=== PATIENT | male | born 1945 | race Caucasian/White ===

== ENCOUNTER 2021-08-31 10:10 | Outpatient (CLI) | payer MEDICARE, BC ==
[2021-08-31 11:17] LABS: Hemoglobin 11.8 g/dL (13.5-17.5); Mean Corpuscular HGB CONC 32.4 g/dL (32.0-36.0); Mean Corpuscular Hemoglobin 28.9 pg (27.0-33.0); Mean Platelet Volume 10.7 fl (7.4-10.4); Platelet Count 155 10x3/uL (150-450); RBC Distribution Width 15.8 % (11.5-14.5); Red Blood Cell (RBC) Count 4.09 10x6/uL (4.32-5.72); White Blood Cell (WBC) Count 5.2 10x3/uL (3.5-10.5)
[2021-08-31 11:37] LABS: Anion Gap 15 mmol/L (10-20); BUN (Urea Nitrogen) 26 mg/dL (8.4-25.7); Calc. Creatinine Clearance 0 mL/min (70-130); Calcium 9.4 mg/dL (7.8-10.44); Carbon Dioxide 27 mmol/L (23-31); Chloride 100 mmol/L (98-107); Estimated GFR 62; Glucose 167 mg/dL (83-110); Potassium 4.1 mmol/L (3.5-5.1); Sodium 138 mmol/L (136-145)
[2021-08-31 11:45] LABS: PTT 30.5 sec (22.0-33.0); Prothrombin Time 10.8 sec (9.5-12.1)
== END 2021-08-31 10:11 | disposition home or self-care (01) ==
LOC: CSHLAB 10:10
PROVIDERS: ATTEND Specialist
DX: Z01.818 Encounter for other preprocedural examination (principal); Z20.822 Contact with and (suspected) exposure to COVID-19
CPT/HCPCS: 80048; 85027; 85610; 85730; 87811; 93005; 93010

== ENCOUNTER → 2021-09-04 | Day surgery (SDC) | payer MEDICARE, BC ==
[~2021-09-04] MED LIST: Adenosine 6 MG/2 ML VIAL ONE; Ascorbic Acid 500 mg Chewable Tablet ONE; Aspirin 325 MG TAB ONE; Clopidogrel Bisulfate 300 MG TAB ONE; Famotidine 20 MG TAB PO SCH; Fentanyl 100 MCG/2 ML VIAL ONE; Heparin 10,000 UNITS/ 10 ML VIAL ONE; Lidocaine 1% 20 ML MDV ONE; Midazolam HCl 5 mg/5 ml Vial ONE; Nitroglycerin 50 MG/250 ML BOT 0 ML ONE; diphenhydrAMINE 25 MG CAP ONE; predniSONE 10 MG TAB PO SCH; predniSONE 20 MG TAB PO SCH
[2021-09-04 11:10] VITALS: BP 133/69; TEMP 97.6
== END | disposition home or self-care (01) ==
LOC: CSHSDC 10:16
PROVIDERS: ATTEND Specialist
PROC: 027034Z Dilation of Coronary Artery, One Artery with Drug-eluting Intraluminal Device, Percutaneous Approach (ICD-10-PCS; principal; 2021-09-04)
PROC: 4A023N7 Measurement of Cardiac Sampling and Pressure, Left Heart, Percutaneous Approach (ICD-10-PCS; 2021-09-04)
PROC: B2111ZZ Fluoroscopy of Multiple Coronary Arteries using Low Osmolar Contrast (ICD-10-PCS; 2021-09-04)
PROC: B2131ZZ Fluoroscopy of Multiple Coronary Artery Bypass Grafts using Low Osmolar Contrast (ICD-10-PCS; 2021-09-04)
DX: T82.858A Stenosis of other vascular prosthetic devices, implants and grafts, initial encounter (principal); I25.118 Atherosclerotic heart disease of native coronary artery with other forms of angina pectoris; I25.82 Chronic total occlusion of coronary artery; I25.2 Old myocardial infarction; I11.0 Hypertensive heart disease with heart failure; I50.32 Chronic diastolic (congestive) heart failure; I45.10 Unspecified right bundle-branch block; I48.0 Paroxysmal atrial fibrillation; E78.2 Mixed hyperlipidemia; I65.21 Occlusion and stenosis of right carotid artery; E11.42 Type 2 diabetes mellitus with diabetic polyneuropathy; E11.51 Type 2 diabetes mellitus with diabetic peripheral angiopathy without gangrene; I70.213 Atherosclerosis of native arteries of extremities with intermittent claudication, bilateral legs; Z79.01 Long term (current) use of anticoagulants; Z79.4 Long term (current) use of insulin; Z79.82 Long term (current) use of aspirin; Z79.899 Other long term (current) drug therapy; Z79.84 Long term (current) use of oral hypoglycemic drugs; Z88.1 Allergy status to other antibiotic agents; Z95.1 Presence of aortocoronary bypass graft
CPT/HCPCS: 82962; 92978; 92979; 93005; 93459; C1753; C1760 ×2; C1769; C1874 ×2; C1887; C9604; 36416; 92937; 93010; 99152; 99153; J0153; J1644; J2250; J3010; J7512

== ENCOUNTER 2022-03-01 14:21 | Inpatient (IN) | payer MEDICARE, BC ==
[~2022-03-01 14:21] MED LIST changes: -Adenosine 6 MG/2 ML VIAL ONE; -Ascorbic Acid 500 mg Chewable Tablet ONE; -Aspirin 325 MG TAB ONE; -Clopidogrel Bisulfate 300 MG TAB ONE; -Famotidine 20 MG TAB PO SCH; -Fentanyl 100 MCG/2 ML VIAL ONE; -Heparin 10,000 UNITS/ 10 ML VIAL ONE; +Iopamidol 370 76% 100 ML VIAL ONE; -Lidocaine 1% 20 ML MDV ONE; -Midazolam HCl 5 mg/5 ml Vial ONE; -Nitroglycerin 50 MG/250 ML BOT 0 ML ONE; -diphenhydrAMINE 25 MG CAP ONE; -predniSONE 10 MG TAB PO SCH; -predniSONE 20 MG TAB PO SCH
[2022-03-01 15:24] LABS: #Monocytes 0.9 10x3/uL (0.0-1.1); #Neutrophils 13.2 10x3/uL (1.5-8.4); %Basophils 0.2 % (0.0-2.0); %Eosinophils 0.3 % (0.0-6.0); %Lymphocytes 3.3 % (18.0-47.0); %Monocytes 5.9 % (0.0-10.0); %Neutrophils 89.4 % (40.0-75.0); Hemoglobin 12.6 g/dL (13.5-17.5); Mean Corpuscular HGB CONC 33.1 g/dL (32.0-36.0); Mean Corpuscular Hemoglobin 29.6 pg (27.0-33.0); Mean Corpuscular Volume 89.6 fl (81.2-95.1); Mean Platelet Volume 10.5 fl (7.4-10.4); Platelet Count 125 10x3/uL (150-450); RBC Distribution Width 15.5 % (11.5-14.5); Red Blood Cell (RBC) Count 4.25 10x6/uL (4.32-5.72); White Blood Cell (WBC) Count 14.7 10x3/uL (3.5-10.5)
[2022-03-01 15:29] LABS: Bilirubin Neg (Negative); Blood, Urine Negative (Negative); Clarity Clear (Clear); Glucose, Urine (Dipstick) >=1000 mg/dL (Negative); Ketone, Urine Negative (Negative); Leukocyte Negative (Negative); Nitrite Negative (Negative); Protein, Urine (Dipstick) 15 mg/dl (Neg-Trace); Specific Gravity, Urine 1.005 (1.005-1.030); Urobilinogen Normal mg/dL (Less than 2)
[2022-03-01] MEDS ORDERED: VANCOMYCIN 2 GRAM/400 ML BAG 2 GM in Premix Bag 1 BAG IVPB SCH (15:30)
[2022-03-01 15:36] LABS: SARS-CoV-2 NAA Rapid Test Not Detected (NotDetected)
[2022-03-01 15:40] LABS: ALT (SGPT) 15 U/L (8-55); AST (SGOT) 15 U/L (5-34); Albumin 3.9 g/dL (3.4-4.8); Alkaline Phosphatase 73 U/L (40-110); Anion Gap 16 mmol/L (10-20); BUN (Urea Nitrogen) 20 mg/dL (8.4-25.7); Bilirubin, Total 0.9 mg/dL (0.2-1.2); Calc. Creatinine Clearance 0 mL/min (70-130); Calcium 9.1 mg/dL (7.8-10.44); Carbon Dioxide 24 mmol/L (23-31); Chloride 101 mmol/L (98-107); Estimated GFR 54; Globulin 2.4 g/dL (2.4-3.5); Glucose 266 mg/dL (83-110); Potassium 3.6 mmol/L (3.5-5.1); Protein, Total 6.3 g/dL (5.8-8.1); Sodium 137 mmol/L (136-145)
[2022-03-01] MEDS ORDERED: HYDROcodone/Acetaminophen 5/325 mg Tablet PO PRN (17:34)
[2022-03-01] MEDS ORDERED: Senokot S 8.6-50 MG TAB PO PRN (17:34)
[2022-03-01] MEDS ORDERED: Acetaminophen 325 MG TAB PO PRN (17:34)
[2022-03-01] MEDS ORDERED: Dextrose 50% Abboject 50 ML SYRINGE SLOW IVP PRN (17:38)
[2022-03-01] MEDS ORDERED: Dextrose 5% in Water 1,000 ML IV PRN (17:38)
[2022-03-01] MEDS ORDERED: diphenhydrAMINE 50 MG/ML VIAL ONE (17:53)
[2022-03-01] MEDS ORDERED: methylPREDNISolone Sod Succ 40 MG VIAL ONE (17:54)
[2022-03-01] MEDS ORDERED: Famotidine/PF 20 mg/2ml Vial ONE (17:54)
[2022-03-01 18:43] LABS: Lactic Acid 2.9 mmol/L (0.5-2.2)
[2022-03-01] MEDS ORDERED: Doxycycline 100 MG in Sodium Chloride 0.9% 100 ML IVPB SCH (21:00)
[2022-03-01] MEDS ORDERED: Piperacillin/Tazobactam 3.375 GM VIAL ONE (21:10)
[2022-03-01] MEDS ORDERED: Famotidine 20 MG TAB ONE (21:13)
[2022-03-01] MEDS ORDERED: Piperacillin/Tazobactam 3.375 GM in Sodium Chloride 0.9% 100 ML IVPB SCH (21:30)
[2022-03-01] MEDS: Famotidine 20 MG TAB PO SCH (21:52)
[2022-03-01] MEDS: Doxycycline 100 MG in Sodium Chloride 0.9% 100 ML IVPB SCH (22:31)
[2022-03-02] MEDS: Apixaban 2.5 MG TAB PO SCH ×3 (00:26→20:57)
[2022-03-02] MEDS ORDERED: DULoxetine 30 MG CAP PO SCH (00:30)
[2022-03-02] MEDS ORDERED: Tamsulosin HCl 0.4 MG CAP PO SCH (00:30)
[2022-03-02] MEDS ORDERED: Gabapentin 300 MG CAP PO SCH (00:30)
[2022-03-02] MEDS ORDERED: Sotalol HCl 80 MG TAB PO SCH (00:30)
[2022-03-02] MEDS ORDERED: Piperacillin/Tazobactam 3.375 GM VIAL ONE ×2 (00:33→10:26)
[2022-03-02] MEDS: HumaLOG 300 UNITS/3 ML VIAL SC PRN ×3 (00:49→20:59)
[2022-03-02] MEDS: Piperacillin/Tazobactam 3.375 GM in Sodium Chloride 0.9% 100 ML IVPB SCH ×3 (00:50→17:57)
[2022-03-02 04:30] LABS: Hemoglobin 11.2 g/dL (13.5-17.5); Mean Corpuscular HGB CONC 32.7 g/dL (32.0-36.0); Mean Corpuscular Hemoglobin 29.1 pg (27.0-33.0); Mean Corpuscular Volume 89.1 fl (81.2-95.1); Mean Platelet Volume 10.8 fl (7.4-10.4); Platelet Count 139 10x3/uL (150-450); RBC Distribution Width 15.8 % (11.5-14.5); Red Blood Cell (RBC) Count 3.85 10x6/uL (4.32-5.72); White Blood Cell (WBC) Count 14.2 10x3/uL (3.5-10.5)
[2022-03-02 04:31] LABS: ALT (SGPT) 14 U/L (8-55); AST (SGOT) 14 U/L (5-34); Albumin 3.4 g/dL (3.4-4.8); Alkaline Phosphatase 55 U/L (40-110); Anion Gap 13 mmol/L (10-20); BUN (Urea Nitrogen) 25 mg/dL (8.4-25.7); Bilirubin, Total 0.9 mg/dL (0.2-1.2); Calc. Creatinine Clearance 0 mL/min (70-130); Calcium 8.5 mg/dL (7.8-10.44); Carbon Dioxide 24 mmol/L (23-31); Chloride 101 mmol/L (98-107); Estimated GFR 49; Globulin 2.2 g/dL (2.4-3.5); Glucose 187 mg/dL (83-110); Potassium 3.3 mmol/L (3.5-5.1); Protein, Total 5.6 g/dL (5.8-8.1); Sodium 135 mmol/L (136-145)
[2022-03-02 04:35] LABS: MDiff Complete? YES
[2022-03-02 05:16] LABS: Band 15 % (5-11); Lymphocytes 4 % (21-51); Metamyelocyte 1 % (0-0); Monocytes 4 % (0-10); Neutrophil 76 % (42-75)
[2022-03-02 05:17] LABS: Microcytosis SLIGHT = 6-15 cells (100X) (0-5/hpf); Platelet Morphology Comment Appears Decreased
[2022-03-02 08:24] VITALS: BMI 32.5
[2022-03-02] MEDS ORDERED: Tamsulosin HCl 0.4 MG CAP ONE (10:22)
[2022-03-02] MEDS ORDERED: Famotidine 20 MG TAB ONE (10:22)
[2022-03-02] MEDS ORDERED: Gabapentin 300 MG CAP ONE (10:22)
[2022-03-02] MEDS ORDERED: Apixaban 2.5 MG TAB ONE (10:22)
[2022-03-02] MEDS ORDERED: Amlodipine 5 MG TAB ONE (10:23)
[2022-03-02] MEDS ORDERED: Aspirin 81 mg Enteric Coated Tablet ONE (10:26)
[2022-03-02] MEDS: DULoxetine 30 MG CAP PO SCH ×2 (10:46→21:00)
[2022-03-02] MEDS: Amlodipine 5 MG TAB PO SCH ×2 (10:46→13:17)
[2022-03-02] MEDS: Aspirin 81 mg Enteric Coated Tablet PO SCH (10:46)
[2022-03-02] MEDS: Famotidine 20 MG TAB PO SCH ×2 (10:46→20:56)
[2022-03-02] MEDS: Gabapentin 300 MG CAP PO SCH ×2 (10:47→20:54)
[2022-03-02] MEDS: Finasteride 5 MG TAB PO SCH (10:47)
[2022-03-02] MEDS: Sotalol HCl 80 MG TAB PO SCH ×2 (10:47→21:00)
[2022-03-02] MEDS: Tamsulosin HCl 0.4 MG CAP PO SCH ×2 (10:49→21:00)
[2022-03-02] MEDS: Doxycycline 100 MG in Sodium Chloride 0.9% 100 ML IVPB SCH (13:17)
[2022-03-02] MEDS ORDERED: VANCOMYCIN 1.75 GM/350 ML BAG 1.75 GM in Premix Bag 1 BAG IVPB SCH (16:00)
[2022-03-02] MEDS ORDERED: Vancomycin 1.5 GRAM/300 ML BAG 1.5 GM in Premix Bag 1 BAG IVPB SCH (16:00)
[2022-03-02] MEDS ORDERED: Saccharomyces boulardii 250 MG CAP PO SCH (21:00)
[2022-03-03] MEDS: Doxycycline 100 MG in Sodium Chloride 0.9% 100 ML IVPB SCH ×2 (00:35→10:10)
[2022-03-03] MEDS: Piperacillin/Tazobactam 3.375 GM in Sodium Chloride 0.9% 100 ML IVPB SCH ×2 (01:36→09:53)
[2022-03-03 06:02] LABS: ALT (SGPT) 18 U/L (8-55); AST (SGOT) 28 U/L (5-34); Albumin 3.3 g/dL (3.4-4.8); Alkaline Phosphatase 54 U/L (40-110); Anion Gap 13 mmol/L (10-20); BUN (Urea Nitrogen) 38 mg/dL (8.4-25.7); Bilirubin, Total 0.6 mg/dL (0.2-1.2); Calc. Creatinine Clearance 67 mL/min (70-130); Calcium 8.7 mg/dL (7.8-10.44); Carbon Dioxide 25 mmol/L (23-31); Chloride 102 mmol/L (98-107); Estimated GFR 49; Globulin 2.4 g/dL (2.4-3.5); Glucose 184 mg/dL (83-110); Potassium 3.6 mmol/L (3.5-5.1); Protein, Total 5.7 g/dL (5.8-8.1); Sodium 136 mmol/L (136-145)
[2022-03-03 06:10] LABS: #Monocytes 0.7 10x3/uL (0.0-1.1); #Neutrophils 10.4 10x3/uL (1.5-8.4); %Basophils 0.2 % (0.0-2.0); %Eosinophils 0.3 % (0.0-6.0); %Lymphocytes 8.9 % (18.0-47.0); %Monocytes 5.9 % (0.0-10.0); %Neutrophils 84.1 % (40.0-75.0); Hemoglobin 11.5 g/dL (13.5-17.5); Mean Corpuscular HGB CONC 33.1 g/dL (32.0-36.0); Mean Corpuscular Hemoglobin 29.3 pg (27.0-33.0); Mean Corpuscular Volume 88.5 fl (81.2-95.1); Mean Platelet Volume 11.1 fl (7.4-10.4); Platelet Count 148 10x3/uL (150-450); RBC Distribution Width 15.9 % (11.5-14.5); Red Blood Cell (RBC) Count 3.92 10x6/uL (4.32-5.72); White Blood Cell (WBC) Count 12.4 10x3/uL (3.5-10.5)
[2022-03-03] MEDS ORDERED: Famotidine 20 MG TAB PO SCH (09:00)
[2022-03-03] MEDS: Finasteride 5 MG TAB PO SCH (09:49)
[2022-03-03] MEDS: Gabapentin 300 MG CAP PO SCH (09:49)
[2022-03-03] MEDS: Famotidine 20 MG TAB PO SCH (09:49)
[2022-03-03] MEDS: Aspirin 81 mg Enteric Coated Tablet PO SCH (09:49)
[2022-03-03] MEDS: DULoxetine 30 MG CAP PO SCH (09:52)
[2022-03-03] MEDS: Tamsulosin HCl 0.4 MG CAP PO SCH (09:52)
[2022-03-03] MEDS: Sotalol HCl 80 MG TAB PO SCH (09:52)
[2022-03-03] MEDS: Amlodipine 5 MG TAB PO SCH (09:56)
[2022-03-03] MEDS ORDERED: Clopidogrel Bisulfate 75 MG TAB PO SCH (10:30)
[2022-03-03] MEDS ORDERED: Amlodipine 5 MG TAB PO SCH ×2 (11:30→21:00)
[2022-03-03] MEDS ORDERED: Valsartan 80 MG TAB PO SCH (11:30)
[2022-03-03] MEDS ORDERED: Doxycycline 100 MG CAP PO SCH (12:00)
[2022-03-03] MEDS: Apixaban 2.5 MG TAB PO SCH (12:55)
[2022-03-03 13:38] VITALS: BP 134/63; TEMP 98.6
[2022-03-03 15:26] LABS: Vancomycin, Trough 12.3 ug/mL
[2022-03-04] MEDS ORDERED: Valsartan 80 MG TAB PO SCH (09:00)
[2022-03-04] MEDS ORDERED: Amlodipine 5 MG TAB PO SCH (09:00)
[2022-03-04] MEDS ORDERED: Clopidogrel Bisulfate 75 MG TAB PO SCH (09:00)
== END 2022-03-03 15:15 | disposition home or self-care (01) | DRG 871 ==
LOC: CSHERS 14:21 → CSHERHOLD 20:44 → CSHTELE 03-02 13:00
PROVIDERS: ADMIT Family Medicine; ATTEND Family Medicine
DX: A41.9 Sepsis, unspecified organism (principal); J15.6 Pneumonia due to other Gram-negative bacteria; E78.5 Hyperlipidemia, unspecified; I25.10 Atherosclerotic heart disease of native coronary artery without angina pectoris; Z20.822 Contact with and (suspected) exposure to COVID-19; I12.9 Hypertensive chronic kidney disease with stage 1 through stage 4 chronic kidney disease, or unspecified chronic kidney disease; N18.30 Chronic kidney disease, stage 3 unspecified; E11.22 Type 2 diabetes mellitus with diabetic chronic kidney disease; Z88.8 Allergy status to other drugs, medicaments and biological substances; Z79.01 Long term (current) use of anticoagulants; Z79.899 Other long term (current) drug therapy; Z79.82 Long term (current) use of aspirin; Z79.4 Long term (current) use of insulin; Z95.1 Presence of aortocoronary bypass graft
CPT/HCPCS: 36415; 36416; 71045; 71275; 80053; 80202; 81003; 83605; 85025; 87040; 87804; 93005; 96365; 96366; 96375; J1200; J1815; J1956; J2543; J2920; J3370; J3490; Q9967; S0028; U0002

== ENCOUNTER 2023-07-31 14:09 | Outpatient (CLI) | payer MEDICARE ==
[2023-07-31 15:28] LABS: Hematocrit 35.2 % (38.8-50.0); Hemoglobin 11.2 g/dL (13.5-17.5); Mean Corpuscular HGB CONC 31.8 g/dL (32.0-36.0); Mean Corpuscular Volume 84.8 fl (81.2-95.1); Mean Platelet Volume 10.1 fl (7.4-10.4); Platelet Count 194 10x3/uL (150-450); RBC Distribution Width 17.2 % (11.5-14.5); Red Blood Cell (RBC) Count 4.15 10x6/uL (4.32-5.72); White Blood Cell (WBC) Count 5.1 10x3/uL (3.5-10.5)
[2023-07-31 16:09] LABS: Anion Gap 15 mmol/L (10-20); BUN (Urea Nitrogen) 24 mg/dL (8.4-25.7); Calc. Creatinine Clearance 0 mL/min (70-130); Calcium 9.9 mg/dL (7.8-10.44); Carbon Dioxide 29 mmol/L (23-31); Chloride 100 mmol/L (98-107); Estimated GFR 61; Glucose 190 mg/dL (83-110); Potassium 4.1 mmol/L (3.5-5.1); Sodium 140 mmol/L (136-145)
[2023-07-31 16:20] LABS: INR-International Normal Ratio 1.1; Prothrombin Time 11.4 sec (9.5-12.1)
== END 2023-07-31 15:05 | disposition home or self-care (01) ==
LOC: CSHLAB 14:09
PROVIDERS: ATTEND Specialist
DX: Z01.818 Encounter for other preprocedural examination (principal); R93.1 Abnormal findings on diagnostic imaging of heart and coronary circulation; I25.10 Atherosclerotic heart disease of native coronary artery without angina pectoris
CPT/HCPCS: 80048; 85027; 85610; 93005; 93010

== ENCOUNTER 2023-08-01 10:39 | Day surgery (SDC) | payer MEDICARE ==
[~2023-08-01 10:39] MED LIST changes: +Iopamidol 300 61% 100 ML VIAL FS ONE; -Iopamidol 370 76% 100 ML VIAL ONE
[2023-08-01] MEDS ORDERED: Aspirin 325 MG TAB ONE (11:02)
[2023-08-01 11:38] VITALS: BP 146/70; TEMP 97.9
[2023-08-01] MEDS ORDERED: Heparin 10,000 UNITS/ 10 ML VIAL ONE (11:47)
[2023-08-01] MEDS ORDERED: Nitroglycerin 50 MG/250 ML BOT 250 ML ONE (11:47)
[2023-08-01] MEDS ORDERED: Lidocaine 1% (PF) 30 ML VIAL ONE (11:47)
[2023-08-01] MEDS ORDERED: Adenosine 6 mg (2 mL) VIAL ONE (11:47)
[2023-08-01] MEDS ORDERED: Midazolam HCl 2 mg/2 ml Vial ONE (11:48)
[2023-08-01] MEDS ORDERED: fentaNYL 50 mcg/mL 1 mL Vial ONE (11:48)
[2023-08-01] MEDS ORDERED: Clopidogrel Bisulfate 300 MG TAB ONE (13:38)
== END 2023-08-01 17:00 | disposition home or self-care (01) ==
LOC: CSHCCL 10:39
PROVIDERS: ATTEND Specialist
PROC: 4A023N7 Measurement of Cardiac Sampling and Pressure, Left Heart, Percutaneous Approach (ICD-10-PCS; principal; 2023-08-01)
DX: I25.10 Atherosclerotic heart disease of native coronary artery without angina pectoris (principal); Z95.5 Presence of coronary angioplasty implant and graft; I11.0 Hypertensive heart disease with heart failure; I50.42 Chronic combined systolic (congestive) and diastolic (congestive) heart failure; E78.5 Hyperlipidemia, unspecified; E11.9 Type 2 diabetes mellitus without complications; Z79.82 Long term (current) use of aspirin; Z79.01 Long term (current) use of anticoagulants; Z79.899 Other long term (current) drug therapy; Z88.8 Allergy status to other drugs, medicaments and biological substances; Z88.1 Allergy status to other antibiotic agents; Z91.09 Other allergy status, other than to drugs and biological substances; Z91.041 Radiographic dye allergy status
CPT/HCPCS: 92978; 92979; 93459; C1725; C1753; C1760; C1769; C1874 ×2; C1876; C1887; C9604 ×2; J3010; 92937; 99152; 99153; J0153; J1644; J2001; J2250; Q9967

== ENCOUNTER → 2024-12-03 | Day surgery (SDC) | payer MEDICARE ==
[~2024-12-03] MED LIST changes: +Adenosine 6 mg (2 mL) VIAL ONE; +Aspirin 325 MG TAB ONE; +FLU (Fluad Triv) 25-26 (65UP)PF 45 MCG/0.5 ML Syringe IM ONE; +Heparin 10,000 UNITS/ 10 ML VIAL ONE; +Lidocaine 1% (PF) 30 ML VIAL ONE; +Nitroglycerin 50 MG/250 ML BOT 0 ML ONE
[2024-12-03 10:06] LABS: #Basophils Less than 0.03 10x3/uL (0.0-0.2); #Eosinophils Less than 0.03 10x3/uL (0.0-0.5); #Monocytes 0.25 10x3/uL (0.0-1.1); #Neutrophils 8.68 10x3/uL (1.5-8.4); %Basophils 0.2 % (0.0-2.0); %Eosinophils 0.1 % (0.0-6.0); %Lymphocytes 7.2 % (18.0-47.0); %Monocytes 2.6 % (0.0-10.0); %Neutrophils 89.4 % (40.0-75.0); Hematocrit 38.6 % (38.8-50.0); Hemoglobin 12.4 g/dL (13.5-17.5); Mean Corpuscular Hemoglobin 27.4 pg (27.0-33.0); Mean Corpuscular Volume 85.2 fL (81.2-95.1); Platelet Count 158 10x3/uL (150-450); Red Blood Cell (RBC) Count 4.53 10x6/uL (4.32-5.72); White Blood Cell (WBC) Count 9.71 10x3/uL (3.5-10.5)
[2024-12-03 10:24] LABS: INR-International Normal Ratio 1.0; Prothrombin Time 11.2 sec (9.5-12.1)
[2024-12-03 10:26] LABS: Anion Gap 14 mmol/L (10-20); BUN (Urea Nitrogen) 26 mg/dL (8.4-25.7); Calc. Creatinine Clearance 0 mL/min (70-130); Calcium 9.8 mg/dL (7.8-10.44); Carbon Dioxide 29 mmol/L (23-31); Chloride 100 mmol/L (98-107); Glucose 210 mg/dL (83-110); Potassium 3.9 mmol/L (3.5-5.1); Sodium 139 mmol/L (136-145)
[2024-12-03 10:30] VITALS: BP 157/71; TEMP 98
[2024-12-03 10:31] VITALS: BMI 30.7
== END ==
LOC: CSHCCL 09:12
PROVIDERS: ATTEND Specialist
PROC: 4A023N7 Measurement of Cardiac Sampling and Pressure, Left Heart, Percutaneous Approach (ICD-10-PCS; principal; 2024-12-03)
DX: I25.10 Atherosclerotic heart disease of native coronary artery without angina pectoris (principal); I11.0 Hypertensive heart disease with heart failure; I50.42 Chronic combined systolic (congestive) and diastolic (congestive) heart failure; E78.5 Hyperlipidemia, unspecified; E11.9 Type 2 diabetes mellitus without complications; I48.91 Unspecified atrial fibrillation; Z79.01 Long term (current) use of anticoagulants; Z91.041 Radiographic dye allergy status; Z88.8 Allergy status to other drugs, medicaments and biological substances
CPT/HCPCS: 36215; 36225; 75710; 80048; 85025; 85610; 93459; C1725; C1760; C1769; C1874; C1887; C9600; J0461; J1644; J2250; 92928; 93005; 93010; 99152; 99153; J0153; Q9967